=== PATIENT | female | born 1960 | race Caucasian/White ===

== ENCOUNTER → 2016-10-07 | Outpatient (CLI) | payer OTHER ==
--- NOTE | 2016-10-07 07:42 | DIAGNOSTIC IMAGING REPORT ---
RENAL ULTRASOUND CLINICAL HISTORY: Chronic kidney disease. COMPARISON STUDY: None. TECHNIQUE: Sonography of the kidneys and the urinary bladder was performed. FINDINGS: The right kidney measures 10.3 x 3.6 x 4.3 cm and the left measures 10.1 x 5.5 x 4.3 cm. There is no hydronephrosis. Renal echogenicity, size and cortical thickness are normal. No calculi or masses are identified by sonography. Both ureteral jets were identified. There is suspected fatty infiltration of the liver. IMPRESSION: 1. Normal sonographic appearance of the kidneys. No hydronephrosis. 2. Suspected fatty infiltration of the liver. Electronically signed by: Marvel Ulloa M.D. 10/07/2016 7:40 AM Dictated Date/Time: 10/07/2016 7:38 AM
== END | disposition home or self-care (01) ==
LOC: C.ULTR 06:34
PROVIDERS: ATTEND Family Medicine
DX: N18.9 Chronic kidney disease, unspecified (principal)

== ENCOUNTER → 2017-03-14 | Outpatient (CLI) | payer OTHER ==
--- NOTE | 2017-03-14 12:43 | MAMMOGRAPHY REPORT ---
BILATERAL DIGITAL SCREENING MAMMOGRAM TOMOSYNTHESIS WITH CAD: 03/14/2017 CLINICAL HISTORY: Routine screening. TECHNIQUE: Breast tomosynthesis in addition to standard 2D mammography was performed. Current study was also evaluated with a Computer Aided Detection (CAD) system. COMPARISON: Comparison is made to exams dated: 03/12/2016 mammogram, 03/10/2015 mammogram, 03/09/2014 ma mmogram, 03/01/2013 mammogram, 02/27/2012 mammogram, and 02/22/2011 mammogram - [facility]. BREAST COMPOSITION: There are scattered areas of fibroglandular density in both breasts. FINDINGS: No suspicious masses, calcifications, or areas of architectural distortion are noted in ei ther breast. There has been no significant interval change compared to prior exams. IMPRESSION: ACR BI-RADS CATEGORY 1: NEGATIVE There is no mammographic evidence of malignancy. A 1 year screening mammogram is recommended. The pa tient will receive written notification of the results. Approximately 10% of breast cancers are not detected with mammography. A negative mammographic report should not delay biopsy if a clinically suggestive mass is present. Mimi Plunkett M.D. /:03/14/2017 09:30:23 Carpenter And Joiner: Austin SHETTY(Drea)(M), [facility] letter sent: Normal 1/2 BI-RADS Code: ACR BI-RADS Category 1: Negative
== END | disposition home or self-care (01) ==
LOC: C.MAMM 09:00
PROVIDERS: ATTEND Family Medicine
DX: Z12.31 Encounter for screening mammogram for malignant neoplasm of breast (principal)

== ENCOUNTER → 2018-03-19 | Outpatient (CLI) | payer OTHER ==
--- NOTE | 2018-03-19 16:05 | MAMMOGRAPHY REPORT ---
BILATERAL DIGITAL SCREENING MAMMOGRAM TOMOSYNTHESIS WITH CAD: 03/19/2018 CLINICAL HISTORY: Routine screening. Patient has no complaints. TECHNIQUE: The study was acquired using full field digital technology and interpreted from soft copy. Breast tomosynthesis in addition to standard 2D mammography was performed. Current study was also ev aluated with a Computer Aided Detection (CAD) system. COMPARISON: Comparison is made to exams dated: 03/12/2016 mammogram, 03/10/2015 mammogram, 03/09/2014 ma mmogram, 03/01/2013 mammogram, 02/27/2012 mammogram, and 02/22/2011 mammogram - [facility]. BREAST COMPOSITION: There are scattered areas of fibroglandular density in both breasts. FINDINGS: No suspicious masses, calcifications, or areas of architectural distortion are noted in either breast . There has been no significant interval change compared to prior exams. IMPRESSION: ACR BI-RADS CATEGORY 1: NEGATIVE There is no mammographic evidence of malignancy. A 1 year screening mammogram is recommended.( [id number]) The patient will receive written notification of the results. Some breast cancers are not detected with mammography. A negative mammographic report should not keri y biopsy if a clinically suggestive mass is present. Mimi Plunkett M.D. ah/:03/19/2018 14:31:45 Quality Assurance Analyst: RT Jose F(R)(M), [facility] letter sent: Normal 1/2 BI-RADS Code: ACR BI-RADS Category 1: Negative
== END | disposition home or self-care (01) ==
LOC: C.MAMM 08:25
PROVIDERS: ATTEND Family Medicine
DX: Z12.31 Encounter for screening mammogram for malignant neoplasm of breast (principal)